=== PATIENT | female | born 1955 | race Hispanic/Latino ===

== ENCOUNTER → 2020-08-20 | Outpatient (CLI) | payer MEDICARE | LOC: RAD 13:13 | PROVIDERS: ATTEND Family Medicine | DX: M79.605 Pain in left leg (principal) | CPT/HCPCS: 93971 ==

== ENCOUNTER 2021-03-08 12:20 | Emergency (ER) | payer OTHER ==
[~2021-03-08] VITALS: Ht 165.1 cm; Wt 82.6 kg
[~2021-03-08 12:20] MED LIST: AMLODIPINE BESY10 MG PO; DIOVAN160 MG PO; TERAZOSIN HCL5 MG PO
[2021-03-08] MEDS ORDERED: IOPAMIDOL 370 MG/ML 200 ML INFUS..BTL INJ ONE (13:01)
[2021-03-08] MEDS ORDERED: SODIUM CHLORIDE 0.9% 50ML 50 ML ONE (13:01)
[2021-03-08] MEDS ORDERED: KETOROLAC TROMETHAMINE 30 MG/ML VIAL IV STA (13:56)
[2021-03-08] MEDS ORDERED: ACETAMINOPHEN-1 EAC3 PO (13:58)
[2021-03-08] MEDS ORDERED: KETOROLAC TROMETHAMINE 30 MG/ML VIAL ONE (14:25)
[2021-03-08 14:30] VITALS: BP 115/58
== END 2021-03-08 14:40 | disposition home or self-care (01) ==
LOC: FSED 12:35
DX: R07.89 Other chest pain (principal); R91.8 Other nonspecific abnormal finding of lung field
CPT/HCPCS: 71260; 80053; 81003; 82553; 84484; 85025; 99284; J1885; Q9967

== ENCOUNTER → 2021-06-23 | Day surgery (SDC) | payer MEDICARE ==
[2021-06-21 10:39] LABS: BASOPHILS % 0.7 % (0.0-1.0); EOSINOPHILS # (AUTO) 0.2 (0.0-0.4); EOSINOPHILS % 3.1 % (0.0-6.0); HEMATOCRIT 29.5 % (34.2-44.1); HEMOGLOBIN 8.7 g/dL (12.0-16.0); LYMPHOCYTES # (AUTO) 1.9 (1.0-3.2); LYMPHOCYTES % 32.6 % (18.0-39.1); MEAN CORPUSCULAR HEMOGLOBIN 21.1 pg (28-32); MEAN CORPUSCULAR HGB CONC 29.5 g/dL (31-35); MEAN CORPUSCULAR VOLUME 71.4 fL (81-99); MONOCYTES # (AUTO) 0.4 (0.2-0.8); MONOCYTES % 6.4 % (4.4-11.3); NEUTROPHILS # (AUTO) 3.3 (2.1-6.9); NEUTROPHILS % 56.9 % (38.7-80.0); PLATELET COUNT 390 x10e3/uL (140-360); RED BLOOD COUNT 4.13 x10e6/uL (3.6-5.1); RED CELL DISTRIBUTION WIDTH 17.2 % (11.7-14.4)
[~2021-06-23] MED LIST changes: +ACETAMINOPHEN-1 EAC3 PO; +ALEVE220 MG PO; +BENICAR20 MG PO; +HYDROCHLOROTHIA25 MG PO; +LIDOCAINE HCL 2% LOCAL INJ 5 ML SDV VIAL INJ ONE; +PANTOPRAZOLE SO40 MG PO; +PROPOFOL IV EMULSION 10 MG/ML 20 ML VIAL ONE
[2021-06-23 08:50] VITALS: BP 132/80
== END | disposition home or self-care (01) ==
LOC: OR 06:34
PROVIDERS: ATTEND Internal Medicine Gastroenterology
DX: K29.50 Unspecified chronic gastritis without bleeding (principal); K21.9 Gastro-esophageal reflux disease without esophagitis; K44.9 Diaphragmatic hernia without obstruction or gangrene; K59.00 Constipation, unspecified; R19.5 Other fecal abnormalities; K57.30 Diverticulosis of large intestine without perforation or abscess without bleeding; K64.8 Other hemorrhoids; D72.820 Lymphocytosis (symptomatic); D50.9 Iron deficiency anemia, unspecified; Z71.3 Dietary counseling and surveillance; E66.9 Obesity, unspecified; I10 Essential (primary) hypertension; Z01.810 Encounter for preprocedural cardiovascular examination; Z01.812 Encounter for preprocedural laboratory examination; Z20.822 Contact with and (suspected) exposure to COVID-19; Z79.899 Other long term (current) drug therapy; Z68.32 Body mass index [BMI] 32.0-32.9, adult; Z86.73 Personal history of transient ischemic attack (TIA), and cerebral infarction without residual deficits
CPT/HCPCS: 36415; 43239; 45378; 85025; 93005; J2001; J2704; U0002

== ENCOUNTER → 2021-10-05 | Outpatient (CLI) | payer MEDICARE ==
[~2021-10-05] MED LIST changes: -LIDOCAINE HCL 2% LOCAL INJ 5 ML SDV VIAL INJ ONE; -PROPOFOL IV EMULSION 10 MG/ML 20 ML VIAL ONE
== END ==
LOC: CT 15:05
PROVIDERS: ATTEND Internal Medicine Pulmonary Disease
DX: R91.1 Solitary pulmonary nodule (principal)
CPT/HCPCS: 71250

== ENCOUNTER 2022-04-23 11:39 | Emergency (ER) | payer MEDICARE ==
[~2022-04-23] VITALS: Ht 162.6 cm; Wt 81.4 kg
[~2022-04-23 11:39] MED LIST changes: +CEFDINIR300 MG PO; +CYCLOBENZAPRINE5 MG PO; +METOPROLOL SUCC50 MG PO; +MONTELUKAST SOD10 MG PO; +NEXIUM40 MG PO; +PREDNISONE20 MG PO; +XARELTO20 MG PO
[2022-04-23] MEDS ORDERED: ACETAMINOPHEN 325 MG TAB PO ONE (12:15)
[2022-04-23] MEDS ORDERED: TRAMADOL HCL 50 MG TAB PO ONE (12:15)
[2022-04-23] MEDS ORDERED: ONDANSETRON HCL 4 MG ORAL DISINTEGRATING TAB PO ONE (12:15)
[2022-04-23] MEDS ORDERED: IBUPROFEN200 MG PO (12:25)
[2022-04-23] MEDS ORDERED: FUROSEMIDE40 MG PO (12:25)
[2022-04-23] MEDS ORDERED: METHOCARBAMOL500 MG PO (13:30)
[2022-04-23] MEDS ORDERED: NEXIUM40 MG PO (13:30)
== END 2022-04-23 13:36 | disposition home or self-care (01) ==
LOC: FSED 11:49
DX: M47.896 Other spondylosis, lumbar region (principal); M43.16 Spondylolisthesis, lumbar region; I10 Essential (primary) hypertension; I48.91 Unspecified atrial fibrillation; I69.354 Hemiplegia and hemiparesis following cerebral infarction affecting left non-dominant side
CPT/HCPCS: 72131; 81003; 99283; Q0162

== ENCOUNTER 2022-10-02 18:48 | Emergency (ER) | payer MEDICARE ==
[~2022-10-02] VITALS: Ht 154.9 cm; Wt 82.6 kg
[~2022-10-02 18:48] MED LIST changes: +FUROSEMIDE40 MG PO; +IBUPROFEN200 MG PO; +METHOCARBAMOL500 MG PO
[2022-10-02] MEDS ORDERED: TRAMADOL HCL 50 MG TAB PO STA (19:14)
[2022-10-02] MEDS ORDERED: IBUPROFEN 600 MG TAB PO STA (19:33)
[2022-10-02] MEDS ORDERED: TRAMADOL HCL 50 MG TAB ONE (19:41)
[2022-10-02] MEDS ORDERED: IBUPROFEN 600 MG TAB ONE (19:43)
[2022-10-02] MEDS ORDERED: ULTRAM 50MG50 MG PO (20:46)
== END 2022-10-02 20:49 | disposition home or self-care (01) ==
LOC: FSED 19:06
DX: M25.551 Pain in right hip (principal); I10 Essential (primary) hypertension; I48.91 Unspecified atrial fibrillation; I69.354 Hemiplegia and hemiparesis following cerebral infarction affecting left non-dominant side; Z88.1 Allergy status to other antibiotic agents; Z79.02 Long term (current) use of antithrombotics/antiplatelets; Z79.1 Long term (current) use of non-steroidal anti-inflammatories (NSAID); Z79.899 Other long term (current) drug therapy; Z91.81 History of falling
CPT/HCPCS: 99283

== ENCOUNTER 2022-11-08 11:00 | Outpatient (RCR) | payer MEDICARE ==
[~2022-11-08 11:00] MED LIST changes: +ULTRAM 50MG50 MG PO
== END 2022-11-19 ==
LOC: PT 11:00
PROVIDERS: ATTEND Specialist
DX: S72.101A Unspecified trochanteric fracture of right femur, initial encounter for closed fracture (principal)

== ENCOUNTER 2022-11-21 08:46 | Outpatient (RCR) | payer MEDICARE | END 2022-12-20 | LOC: PT 08:46 | PROVIDERS: ATTEND Specialist | DX: S72.101A Unspecified trochanteric fracture of right femur, initial encounter for closed fracture (principal) ==

== ENCOUNTER 2023-05-09 14:59 | Outpatient (RCR) | payer MEDICARE ==
[~2023-05-09 14:59] MED LIST changes: +ATORVASTATIN CA20 MG PO; +METRONIDAZOLE500 MG PO; +NAPROSYN500 MG PO; +ONDANSETRON ODT4 MG SL
== END 2023-05-22 ==
LOC: PT 14:59
PROVIDERS: ATTEND Physician Assistant
DX: Z47.1 Aftercare following joint replacement surgery (principal); Z96.651 Presence of right artificial knee joint; M62.81 Muscle weakness (generalized)

== ENCOUNTER → 2023-08-14 | Outpatient (REF) | payer MEDICARE ==
[~2023-08-14] MED LIST changes: +CENTRUM ADULTS1 EACH PO
== END ==
LOC: US 08:45
PROVIDERS: ATTEND Urology
DX: R31.21 Asymptomatic microscopic hematuria (principal)
CPT/HCPCS: 74018; 76770

== ENCOUNTER 2024-01-18 14:51 | Outpatient (RCR) | payer MEDICARE ==
[~2024-01-18 14:51] MED LIST changes: +ATORVASTATIN CA40 MG PO; +ELIQUIS5 MG PO; +FAMOTIDINE20 MG PO; +FLOMAX0.4 MG PO; +HYDRALAZINE HCL25 MG PO; +ISORDIL20 MG PO; +LOPRESSOR25 MG PO; +MECLIZINE HCL12.5 MG PO; +TERAZOSIN HCL1 MG PO; +ZETIA10 MG PO
[2024-02-02] MEDS ORDERED: PANTOPRAZOLE SO40 MG PO (21:52)
== END 2024-01-20 ==
LOC: PT 14:51
PROVIDERS: ATTEND Family Medicine
DX: I69.351 Hemiplegia and hemiparesis following cerebral infarction affecting right dominant side (principal); M62.81 Muscle weakness (generalized)

== ENCOUNTER → 2024-02-20 | Outpatient (RCR) | payer MEDICARE | LOC: PT 01-21 11:23 | PROVIDERS: ATTEND Family Medicine | DX: I69.351 Hemiplegia and hemiparesis following cerebral infarction affecting right dominant side (principal) ==

== ENCOUNTER 2024-03-17 13:48 | Outpatient (RCR) | payer MEDICARE | END 2024-03-22 | LOC: PT 13:48 | PROVIDERS: ATTEND Family Medicine | DX: I69.351 Hemiplegia and hemiparesis following cerebral infarction affecting right dominant side (principal) ==

== ENCOUNTER 2024-03-26 11:30 | Outpatient (RCR) | payer MEDICARE | END 2024-04-21 | LOC: PT 11:30 | PROVIDERS: ATTEND Family Medicine | DX: I69.351 Hemiplegia and hemiparesis following cerebral infarction affecting right dominant side (principal) ==

== ENCOUNTER 2024-04-08 19:15 | Emergency (ER) | payer MEDICARE ==
[~2024-04-08] VITALS: Ht 162.6 cm; Wt 81.6 kg
[2024-04-08 19:48] VITALS: TEMP 98.2
[2024-04-08 20:09] LABS: BASOPHILS # (AUTO) 0.1 (0.0-0.1); BASOPHILS % 0.8 % (0.0-1.0); EOSINOPHILS # (AUTO) 0.1 (0.0-0.4); EOSINOPHILS % 1.3 % (0.0-6.0); HEMOGLOBIN 13.5 g/dL (12.0-16.0); LYMPHOCYTES # (AUTO) 2.5 (1.0-3.2); LYMPHOCYTES % 33.8 % (18.0-39.1); MEAN CORPUSCULAR HEMOGLOBIN 31.3 pg (28-32); MEAN CORPUSCULAR HGB CONC 32.9 g/dL (31-35); MEAN CORPUSCULAR VOLUME 94.9 fL (81-99); MONOCYTES # (AUTO) 0.5 (0.2-0.8); MONOCYTES % 6.9 % (4.4-11.3); NEUTROPHILS # (AUTO) 4.3 (2.1-6.9); NEUTROPHILS % 56.9 % (38.7-80.0); PLATELET COUNT 252 x10e3/uL (140-360); RED BLOOD COUNT 4.32 x10e6/uL (3.6-5.1); WHITE BLOOD COUNT 7.49 x10e3/uL (4.8-10.8)
[2024-04-08 20:20] LABS: BILIRUBIN,URINE NEGATIVE (NEGATIVE); CLARITY,URINE SL CLOUDY (CLEAR); COLOR,URINE YELLOW (YELLOW); GLUCOSE, URINE NEGATIVE (NEGATIVE); KETONES,URINE NEGATIVE (NEGATIVE); LEUKOCYTE ESTERASE ,URINE NEGATIVE (NEGATIVE); NITRITE,URINE NEGATIVE (NEGATIVE); PH,URINE 6 (5 - 7); PROTEIN,URINE DIPSTICK NEGATIVE (NEGATIVE); URINE UROBILINOGEN 0.2 mg/dL (0.2 - 1)
[2024-04-08 20:25] LABS: ALBUMIN 4.5 g/dL (3.5-5.0); ANION GAP 12.5 mmol/L (8-16); BILIRUBIN,TOTAL 0.3 mg/dL (0.2-1.2); CALCIUM 10.9 mg/dL (8.4-10.2); CREATININE, SERUM 0.76 mg/dL (0.57-1.11); POTASSIUM 4.5 mmol/L (3.5-5.1); TOTAL PROTEIN 6.7 g/dL (6.5-8.1)
[2024-04-08 20:31] LABS: TROPONIN I 0.002 ng/mL (0-0.300)
[2024-04-08 20:31] LABS: BACTERIA,URINE MANY /HPF; EPITHELIAL CELLS,URINE FEW /LPF
[2024-04-08] MEDS: SODIUM CHLORIDE 0.9% 1000ML 1,000 ML IV STA (20:35)
[2024-04-08 20:37] VITALS: PULSE 49; RESP 19
[2024-04-08 21:25] VITALS: BP 147/57; PULSE 59; RESP 16; O2SAT 100
== END 2024-04-08 21:25 | disposition home or self-care (01) ==
LOC: ER 19:28
DX: R51.9 Headache, unspecified (principal); R07.89 Other chest pain; I10 Essential (primary) hypertension; I48.91 Unspecified atrial fibrillation; I69.354 Hemiplegia and hemiparesis following cerebral infarction affecting left non-dominant side; Z87.19 Personal history of other diseases of the digestive system; Z96.651 Presence of right artificial knee joint
CPT/HCPCS: 36415; 70450; 71045; 80053; 81001; 82550; 83880; 84484; 85025; 93005; 99284; J7030

== ENCOUNTER 2024-05-27 18:03 | Inpatient (IN) | payer MEDICARE ==
[~2024-05-27] VITALS: Ht 162.6 cm; Wt 81.6 kg
[2024-05-27 18:20] VITALS: TEMP 98.8
[2024-05-27 18:55] LABS: BASOPHILS % 0.5 % (0.0-1.0); EOSINOPHILS # (AUTO) 0.2 (0.0-0.4); EOSINOPHILS % 2.2 % (0.0-6.0); HEMATOCRIT 41.3 % (34.2-44.1); HEMOGLOBIN 13.6 g/dL (12.0-16.0); LYMPHOCYTES # (AUTO) 1.6 (1.0-3.2); LYMPHOCYTES % 21.7 % (18.0-39.1); MEAN CORPUSCULAR HEMOGLOBIN 31.2 pg (28-32); MEAN CORPUSCULAR HGB CONC 32.9 g/dL (31-35); MEAN CORPUSCULAR VOLUME 94.7 fL (81-99); MONOCYTES # (AUTO) 0.5 (0.2-0.8); MONOCYTES % 6.3 % (4.4-11.3); NEUTROPHILS # (AUTO) 5.2 (2.1-6.9); NEUTROPHILS % 69.2 % (38.7-80.0); PLATELET COUNT 254 x10e3/uL (140-360); RED BLOOD COUNT 4.36 x10e6/uL (3.6-5.1); RED CELL DISTRIBUTION WIDTH 13.4 % (11.7-14.4); WHITE BLOOD COUNT 7.56 x10e3/uL (4.8-10.8)
[2024-05-27] MEDS: MEROPENEM 1 GM in SODIUM CHLORIDE 0.9% 100 ML IV SCH (19:05)
[2024-05-27 19:08] LABS: ALBUMIN 4.4 g/dL (3.5-5.0); ALBUMIN/GLOBULIN RATIO 1.9 (0.8-2.0); ANION GAP 11.8 mmol/L (8-16); BILIRUBIN,TOTAL 0.2 mg/dL (0.2-1.2); CALCIUM 10.8 mg/dL (8.4-10.2); CREATININE, SERUM 0.81 mg/dL (0.57-1.11); POTASSIUM 3.8 mmol/L (3.5-5.1); TOTAL PROTEIN 6.7 g/dL (6.5-8.1)
[2024-05-27 19:10] VITALS: PULSE 61; RESP 20
[2024-05-27 21:15] VITALS: BP 130/89; PULSE 113; RESP 18; TEMP 98.6; O2SAT 94
[2024-05-28] VITALS (10 sets, daily range): BP systolic 117–142; BP diastolic 46–79; PULSE 54–83; RESP 16–20; TEMP 97.3–98.6; O2SAT 96–99
[2024-05-28] MEDS ORDERED: TRAZODONE HCL100 MG PO (01:06)
[2024-05-28] MEDS ORDERED: LISINOPRIL10 MG PO (01:06)
[2024-05-28 06:03] LABS: BASOPHILS % 0.7 % (0.0-1.0); EOSINOPHILS # (AUTO) 0.2 (0.0-0.4); EOSINOPHILS % 3.1 % (0.0-6.0); HEMATOCRIT 38.4 % (34.2-44.1); HEMOGLOBIN 12.6 g/dL (12.0-16.0); LYMPHOCYTES % 33.3 % (18.0-39.1); MEAN CORPUSCULAR HEMOGLOBIN 31.4 pg (28-32); MEAN CORPUSCULAR HGB CONC 32.8 g/dL (31-35); MEAN CORPUSCULAR VOLUME 95.8 fL (81-99); MONOCYTES # (AUTO) 0.6 (0.2-0.8); MONOCYTES % 9.8 % (4.4-11.3); NEUTROPHILS # (AUTO) 3.3 (2.1-6.9); NEUTROPHILS % 52.9 % (38.7-80.0); PLATELET COUNT 210 x10e3/uL (140-360); RED BLOOD COUNT 4.01 x10e6/uL (3.6-5.1); RED CELL DISTRIBUTION WIDTH 13.4 % (11.7-14.4); WHITE BLOOD COUNT 6.13 x10e3/uL (4.8-10.8)
[2024-05-28] MEDS ORDERED: SODIUM CHLORIDE 0.9% 250ML 250 ML ONE (06:08)
[2024-05-28 06:26] LABS: ALBUMIN 3.6 g/dL (3.5-5.0); ALBUMIN/GLOBULIN RATIO 1.7 (0.8-2.0); BILIRUBIN,TOTAL 0.3 mg/dL (0.2-1.2); CALCIUM 10.9 mg/dL (8.4-10.2); CREATININE, SERUM 0.69 mg/dL (0.57-1.11); TOTAL PROTEIN 5.7 g/dL (6.5-8.1)
[2024-05-28] MEDS ORDERED: METOPROLOL SUCCINATE 50 MG TAB XL PO SCH (09:00)
[2024-05-28] MEDS: METOPROLOL SUCCINATE 50 MG TAB XL PO SCH (09:00)
[2024-05-28] MEDS: PANTOPRAZOLE SOD 40 MG TABEC PO SCH (10:00)
[2024-05-28] MEDS: MECLIZINE HCL 12.5 MG TAB PO SCH (15:02)
[2024-05-28] MEDS: ONDANSETRON HCL INJ 2MG/ML 2ML 2 MG/ML VIAL IV PRN (16:40)
[2024-05-28] MEDS: TRAZODONE HCL 50 MG TAB PO SCH (21:47)
[2024-05-28] MEDS: ATORVASTATIN 40 MG TAB PO SCH (21:47)
[2024-05-29] VITALS (7 sets, daily range): BP systolic 73–127; BP diastolic 51–71; PULSE 52–66; RESP 18–19; TEMP 97–98.6; O2SAT 94–100
[2024-05-30] VITALS: BP 102/45; PULSE 51; RESP 18; TEMP 98.6; O2SAT 98
[2024-05-30 04:00] VITALS: BP 118/57; PULSE 55; RESP 18; TEMP 98.6; O2SAT 98
[2024-05-30 06:20] LABS: BASOPHILS # (AUTO) 0.1 (0.0-0.1); BASOPHILS % 0.9 % (0.0-1.0); EOSINOPHILS # (AUTO) 0.2 (0.0-0.4); EOSINOPHILS % 3.2 % (0.0-6.0); HEMATOCRIT 38.8 % (34.2-44.1); HEMOGLOBIN 12.9 g/dL (12.0-16.0); LYMPHOCYTES # (AUTO) 2.5 (1.0-3.2); LYMPHOCYTES % 37.8 % (18.0-39.1); MEAN CORPUSCULAR HEMOGLOBIN 31.3 pg (28-32); MEAN CORPUSCULAR HGB CONC 33.2 g/dL (31-35); MEAN CORPUSCULAR VOLUME 94.2 fL (81-99); MONOCYTES # (AUTO) 0.5 (0.2-0.8); MONOCYTES % 7.9 % (4.4-11.3); NEUTROPHILS # (AUTO) 3.3 (2.1-6.9); PLATELET COUNT 204 x10e3/uL (140-360); RED BLOOD COUNT 4.12 x10e6/uL (3.6-5.1); RED CELL DISTRIBUTION WIDTH 13.3 % (11.7-14.4); WHITE BLOOD COUNT 6.56 x10e3/uL (4.8-10.8)
[2024-05-30 07:05] LABS: ANION GAP 12.1 mmol/L (8-16); CALCIUM 10.4 mg/dL (8.4-10.2); CREATININE, SERUM 0.64 mg/dL (0.57-1.11); POTASSIUM 4.1 mmol/L (3.5-5.1)
[2024-05-30 09:00] VITALS: BP 139/78; PULSE 58; RESP 16; TEMP 98.1; O2SAT 100
[2024-05-30] MEDS: APIXABAN 5 MG TABLET PO SCH (09:13)
[2024-05-30] MEDS: ISOSORBIDE DINITRATE 20 MG TAB PO SCH (09:14)
[2024-05-30 09:15] VITALS: BP 133/78; PULSE 58
[2024-05-30] MEDS: METOPROLOL SUCCINATE 50 MG TAB XL PO SCH (09:15)
[2024-05-30] MEDS: LISINOPRIL 20 MG TAB PO SCH (09:15)
[2024-05-30] MEDS ORDERED: ONDANSETRON HCL 4 MG ORAL DISINTEGRATING TAB PO PRN (11:45)
== END 2024-05-30 11:27 | disposition home health service (06) | DRG 690 ==
LOC: ER 18:18 → ERHOLD 19:06 → MED/SURG2 21:25
PROVIDERS: ADMIT Internal Medicine; ATTEND Internal Medicine
PROC: 02HV33Z Insertion of Infusion Device into Superior Vena Cava, Percutaneous Approach (ICD-10-PCS; principal; 2024-05-28)
PROC: B548ZZA Ultrasonography of Superior Vena Cava, Guidance (ICD-10-PCS; 2024-05-28)
DX: N39.0 Urinary tract infection, site not specified (principal); Z16.12 Extended spectrum beta lactamase (ESBL) resistance; Z16.24 Resistance to multiple antibiotics; I69.354 Hemiplegia and hemiparesis following cerebral infarction affecting left non-dominant side; B96.1 Klebsiella pneumoniae [K. pneumoniae] as the cause of diseases classified elsewhere; R33.9 Retention of urine, unspecified; N31.9 Neuromuscular dysfunction of bladder, unspecified; I12.9 Hypertensive chronic kidney disease with stage 1 through stage 4 chronic kidney disease, or unspecified chronic kidney disease; N18.9 Chronic kidney disease, unspecified; I48.91 Unspecified atrial fibrillation; Z79.01 Long term (current) use of anticoagulants; K57.30 Diverticulosis of large intestine without perforation or abscess without bleeding; K44.9 Diaphragmatic hernia without obstruction or gangrene; N95.2 Postmenopausal atrophic vaginitis; R16.0 Hepatomegaly, not elsewhere classified; E66.9 Obesity, unspecified; Z68.30 Body mass index [BMI] 30.0-30.9, adult; Z71.3 Dietary counseling and surveillance; Z79.899 Other long term (current) drug therapy
CPT/HCPCS: 36415; 36569; 71045; 74177; 80048; 80053; 85025; 87040; 87086; 94799; 99284; J2185; J2405; J7050

== ENCOUNTER 2024-08-24 19:01 | Emergency (ER) | payer MEDICARE ==
[~2024-08-24] VITALS: Ht 315 cm; Wt 81.6 kg
[~2024-08-24 19:01] MED LIST changes: +LISINOPRIL10 MG PO; +TRAZODONE HCL100 MG PO
[2024-08-24 19:12] VITALS: PULSE 62; RESP 16; TEMP 98.3
[2024-08-24] MEDS: ONDANSETRON HCL 4 MG ORAL DISINTEGRATING TAB PO ONE (19:20)
[2024-08-24] MEDS: HYDROCODONE/APAP 7.5MG-325MG 1 EA TAB PO ONE (19:20)
[2024-08-24] MEDS ORDERED: ULTRAM 50MG50 MG PO (21:49)
[2024-08-24 22:21] VITALS: BP 149/107; PULSE 75; RESP 16; TEMP 98.6; O2SAT 100
== END 2024-08-24 22:25 | disposition home or self-care (01) ==
LOC: ER 19:12
DX: S93.492A Sprain of other ligament of left ankle, initial encounter (principal); S90.111A Contusion of right great toe without damage to nail, initial encounter; W01.0XXA Fall on same level from slipping, tripping and stumbling without subsequent striking against object, initial encounter; Y93.01 Activity, walking, marching and hiking; Y92.89 Other specified places as the place of occurrence of the external cause; I10 Essential (primary) hypertension; I48.91 Unspecified atrial fibrillation; I69.354 Hemiplegia and hemiparesis following cerebral infarction affecting left non-dominant side; Z87.19 Personal history of other diseases of the digestive system
CPT/HCPCS: 73610; 73630; 73660; 99283; Q0162

== ENCOUNTER 2025-05-07 19:11 | Inpatient (IN) | payer MEDICARE ==
[~2025-05-07] VITALS: Ht 162.6 cm; Wt 79.4 kg
[2025-05-07 19:17] VITALS: TEMP 98.7
[2025-05-07] MEDS ORDERED: ONDANSETRON HCL INJ 2MG/ML 2ML 2 MG/ML VIAL IV PRN (19:45)
[2025-05-07] MEDS ORDERED: Morphine 4mg INJECTION 4 MG/ML INJ IV PRN (19:45)
[2025-05-07 19:46] LABS: BASOPHILS % 0.6 % (0.0-1.0); EOSINOPHILS % 0.9 % (0.0-6.0); LYMPHOCYTES % 19.2 % (18.0-39.1); MONOCYTES % 9.6 % (4.4-11.3); NEUTROPHILS % 69.3 % (38.7-80.0); RED CELL DISTRIBUTION WIDTH 13.0 % (11.7-14.4)
[2025-05-07 19:47] LABS: LEUKOCYTE ESTERASE ,URINE TRACE (NEGATIVE); PROTEIN,URINE DIPSTICK NEGATIVE (NEGATIVE); URINE UROBILINOGEN 0.2 mg/dL (0.2 - 1)
[2025-05-07] MEDS: SODIUM CHLORIDE 0.9% 1000ML 1,000 ML IV SCH (19:55)
[2025-05-07] MEDS: MEROPENEM 1 GM in SODIUM CHLORIDE 0.9% 100 ML IV SCH (19:55)
[2025-05-07 20:00] LABS: WBC,URINE (MAN) 21-50 /HPF (0-5)
[2025-05-07 20:01] LABS: EPITHELIAL CELLS,URINE FEW /LPF
[2025-05-07 20:13] LABS: EST GLOMERULAR FILTRATION RATE 92.0 ML/MIN (>=60)
[2025-05-07 20:37] VITALS: PULSE 59; RESP 20
[2025-05-07 21:00] VITALS: BP 150/62; PULSE 60; RESP 18; TEMP 98.7; O2SAT 98
[2025-05-07 21:41] VITALS: BP 143/74; PULSE 59; RESP 20; TEMP 97.9; O2SAT 95
[2025-05-07] MEDS ORDERED: XALATAN2.5 ML OU (21:50)
[2025-05-07] MEDS ORDERED: NITROFURANTOIN100 MG PO (21:50)
[2025-05-07] MEDS ORDERED: SIMBRINZA 1%-0.28 M1 OU (21:50)
[2025-05-07] MEDS ORDERED: TYLENOL325 MG PO (21:55)
[2025-05-07 22:20] VITALS: BP 130/79; PULSE 57; O2SAT 98
[2025-05-08] VITALS (7 sets, daily range): BP systolic 98–161; BP diastolic 61–84; PULSE 50–64; RESP 17–20; TEMP 97.6–98.3; O2SAT 97–100
[2025-05-08 05:38] LABS: BASOPHILS % 0.6 % (0.0-1.0); EOSINOPHILS % 1.3 % (0.0-6.0); LYMPHOCYTES % 31.2 % (18.0-39.1); MONOCYTES % 7.4 % (4.4-11.3); NEUTROPHILS % 59.2 % (38.7-80.0); RED CELL DISTRIBUTION WIDTH 13.0 % (11.7-14.4)
[2025-05-08 05:59] LABS: EST GLOMERULAR FILTRATION RATE 96 ML/MIN (>=60)
[2025-05-08] MEDS: LISINOPRIL 20 MG TAB PO SCH (10:14)
[2025-05-08] MEDS ORDERED: IOPAMIDOL 370 MG/ML 100 ML INFUS..BTL INJ ONE (11:16)
[2025-05-08] MEDS ORDERED: SODIUM CHLORIDE 0.9% 250ML 250 ML ONE (11:17)
[2025-05-08] MEDS: BRIMONIDINE OU SCH (17:00)
[2025-05-08] MEDS: BRINZOLAMIDE OU SCH (17:00)
[2025-05-08] MEDS: [UNRECOGNIZED DRUG - OTHER] OU SCH (17:00)
[2025-05-08] MEDS: APIXABAN 5 MG TABLET PO SCH (17:27)
[2025-05-08] MEDS: ACETAMINOPHEN 325 MG TAB PO PRN (17:27)
[2025-05-08] MEDS: LATANOPROST(OPTH) 2.5 ML BTL OU SCH (20:52)
[2025-05-08] MEDS: FAMOTIDINE 20 MG TAB PO SCH (20:53)
[2025-05-08] MEDS: METOPROLOL SUCCINATE 50 MG TAB XL PO SCH (20:55)
[2025-05-09] VITALS (12 sets, daily range): BP systolic 114–177; BP diastolic 63–83; PULSE 58–90; RESP 17–19; TEMP 97.8–98.5; O2SAT 97–100
[2025-05-09] MEDS: PANTOPRAZOLE SOD 40 MG TABEC PO SCH (07:36)
[2025-05-09] MEDS: MULTIVITAMINS/MINERALS TAB PO SCH (07:37)
[2025-05-09] MEDS: HYDRALAZINE HCL 20 MG/ML VIAL IV PRN (09:00)
[2025-05-09] MEDS ORDERED: HYDRALAZINE HCL 25 MG TAB PO PRN (13:00)
[2025-05-09] MEDS: LISINOPRIL 20 MG TAB PO SCH (16:16)
[2025-05-10] VITALS (11 sets, daily range): BP systolic 123–175; BP diastolic 57–83; PULSE 58–84; RESP 18; TEMP 97.3–98.1; O2SAT 96–100
[2025-05-11] VITALS (8 sets, daily range): BP systolic 116–158; BP diastolic 57–72; PULSE 60–72; RESP 17–18; TEMP 97.6–98.1; O2SAT 97–100
[2025-05-11 05:37] LABS: BASOPHILS % 0.6 % (0.0-1.0); EOSINOPHILS % 3.6 % (0.0-6.0); LYMPHOCYTES % 33.9 % (18.0-39.1); MONOCYTES % 9.1 % (4.4-11.3); NEUTROPHILS % 52.6 % (38.7-80.0); RED CELL DISTRIBUTION WIDTH 13.0 % (11.7-14.4)
[2025-05-11 06:22] LABS: EST GLOMERULAR FILTRATION RATE 99.0 ML/MIN (>=60)
[2025-05-12] VITALS: BP 119/57; PULSE 65; RESP 17; TEMP 98.1; O2SAT 97
[2025-05-12 04:00] VITALS: BP 127/78; PULSE 63; RESP 17; TEMP 97.7; O2SAT 98
[2025-05-12 07:33] VITALS: BP 125/75; PULSE 60; RESP 18; TEMP 97.9; O2SAT 98
[2025-05-12 08:50] VITALS: BP 125/75; PULSE 60; RESP 18; TEMP 97.9; O2SAT 98
[2025-05-12 11:17] VITALS: BP 125/76; PULSE 64; RESP 19; TEMP 97.4; O2SAT 99
[2025-05-12 15:48] VITALS: BP 132/78; PULSE 75; RESP 18; TEMP 98.6; O2SAT 98
== END 2025-05-12 17:00 | disposition home health service (06) | DRG 690 ==
LOC: ER 19:20 → ERHOLD 19:42 → MED/SURG3 21:01
PROVIDERS: ADMIT Internal Medicine; ATTEND Internal Medicine
PROC: 02HV33Z Insertion of Infusion Device into Superior Vena Cava, Percutaneous Approach (ICD-10-PCS; principal; 2025-05-08)
DX: N39.0 Urinary tract infection, site not specified (principal); I69.354 Hemiplegia and hemiparesis following cerebral infarction affecting left non-dominant side; Z16.12 Extended spectrum beta lactamase (ESBL) resistance; Z16.24 Resistance to multiple antibiotics; B96.1 Klebsiella pneumoniae [K. pneumoniae] as the cause of diseases classified elsewhere; I10 Essential (primary) hypertension; I48.91 Unspecified atrial fibrillation; R31.29 Other microscopic hematuria; R33.9 Retention of urine, unspecified; N39.41 Urge incontinence; N32.81 Overactive bladder; N28.1 Cyst of kidney, acquired; M19.90 Unspecified osteoarthritis, unspecified site; E66.9 Obesity, unspecified; Z68.30 Body mass index [BMI] 30.0-30.9, adult; Z79.01 Long term (current) use of anticoagulants; Z88.1 Allergy status to other antibiotic agents; Z91.048 Other nonmedicinal substance allergy status
CPT/HCPCS: 36415; 36569; 71045; 74178; 80048; 80053; 81001; 82550; 84484; 85025; 99284; J0360; J2185; J2470; J7030; J7050; Q9967